=== PATIENT | female | born 1970 | race Caucasian/White ===

== ENCOUNTER → 2017-02-14 | Outpatient (CLI) | payer OTHER | END | disposition home or self-care (01) | LOC: C.LABSPEC 17:19 | PROVIDERS: ATTEND Podiatrist Primary Podiatric Medicine | DX: B35.1 Tinea unguium (principal) ==

== ENCOUNTER → 2017-12-05 | Outpatient (CLI) | payer OTHER ==
--- NOTE | 2017-12-05 17:20 | DIAGNOSTIC IMAGING REPORT ---
L RIBS UNILATERAL WITH PA CHEST CLINICAL HISTORY: R05 [id number] Rib pain on left [id number] COMPARISON STUDY: None FINDINGS: Negative left ribs. No evidence for fracture. Cortical margins are intact. The lungs are clear. IMPRESSION: Negative left ribs. Negative chest. The above report was generated using voice recognition software. It may contain grammatical, syntax or spelling errors. Electronically signed by: Caleb Brown M.D. 12/05/2017 5:19 PM Dictated Date/Time: 12/05/2017 5:18 PM
== END | disposition home or self-care (01) ==
LOC: C.RAD1850 16:42
PROVIDERS: ATTEND Nurse Practitioner
DX: R05 Cough (principal); R07.81 Pleurodynia

== ENCOUNTER → 2017-12-11 | Outpatient (CLI) | payer OTHER ==
[2017-12-11 12:55] LABS: BASO % 0.1 %; BASO ABS # 0.02 K/uL (0-0.2); EOS % 0.5 %; EOS ABS # 0.08 K/uL (0-0.5); HEMATOCRIT 41.5 % (37-47); HEMOGLOBIN 13.6 g/dL (12.0-16.0); IG# 0.13 K/uL (0.00-0.02); LYMPH % 24.4 %; LYMPH ABS # 3.91 K/uL (1.2-3.4); MEAN CORPUSCULAR HEMOGLOBIN 29.5 pg (25-34); MEAN CORPUSCULAR HGB CONC 32.8 g/dl (32-36); MONO ABS # 1.12 K/uL (0.11-0.59); NEUT % 67.2 %; NEUT ABS # 10.76 K/uL (1.4-6.5); PLATELET COUNT 399 K/uL (130-400); RED CELL DISTRIBUTION WIDTH CV 13.1 % (11.5-14.5); RED CELL DISTRIBUTION WIDTH SD 42.7 fL (36.4-46.3); WHITE BLOOD COUNT 16.02 K/uL (4.8-10.8)
[2017-12-11 13:11] LABS: FOLLICLE STIMULAT HORMONE 46.96 IU/L; LUTEINIZING HORMONE 32.76 IU/L
[2017-12-11 13:31] LABS: ALBUMIN 3.6 gm/dl (3.4-5.0); ALT/SGPT 40 U/L (12-78); BLOOD UREA NITROGEN 17 mg/dl (7-18); CALCIUM 9.2 mg/dl (8.5-10.1); CARBON DIOXIDE 27 mmol/L (21-32); CHOLESTEROL 167 mg/dl (0-200); CREATININE 0.71 mg/dl (0.60-1.20); GLUCOSE 95 mg/dl (70-99); POTASSIUM 4.2 mmol/L (3.5-5.1); SODIUM 139 mmol/L (136-145)
[2017-12-11 13:38] LABS: HEMOGLOBIN A1C 6.2 % (4.5-5.6)
[2017-12-11 13:41] LABS: ALKALINE PHOSPHATASE 58 U/L (45-117); AST/SGOT 23 U/L (15-37); LDL CHOLESTEROL CALCULATED 76 mg/dl; TOTAL PROTEIN 7.2 gm/dl (6.4-8.2)
== END | disposition home or self-care (01) ==
LOC: C.LABBFT 08:39
PROVIDERS: ATTEND Internal Medicine
DX: R73.01 Impaired fasting glucose (principal); R23.2 Flushing

== ENCOUNTER → 2017-12-12 | Outpatient (CLI) | payer OTHER ==
--- NOTE | 2017-12-12 07:55 | DIAGNOSTIC IMAGING REPORT ---
ABDOMEN COMPLETE (US) CLINICAL HISTORY: R10.11 Abdominal pain, RUQ (right upper quadrant)[id number] COMPARISON STUDY: No previous studies for comparison. FINDINGS: The examination was very limited from a technical standpoint due to the patient's body habitus. The gallbladder surgically absent. The liver was of increased echogenicity difficult to penetrate. Hepatic steatosis is suspected. The common bile duct was difficult to visualize but likely measured 7 mm. The spleen measures 1104 cm in length. Each kidney is 12 cm in length. There is no significant hydronephrosis. The aorta was nonvisualized. IMPRESSION: 1. Significantly limited study from a technical standpoint 2. Surgically absent gallbladder 3. Suspected hepatic steatosis Electronically signed by: Joon Gallo M.D. 12/12/2017 7:54 AM Dictated Date/Time: 12/12/2017 7:52 AM
== END | disposition home or self-care (01) ==
LOC: C.ULTR 06:56
PROVIDERS: ATTEND Internal Medicine
DX: R10.11 Right upper quadrant pain (principal); Z90.49 Acquired absence of other specified parts of digestive tract

== ENCOUNTER → 2017-12-16 | Outpatient (CLI) | payer OTHER ==
[~2017-12-16] MED LIST: OPTIRAY 320 IV PRN
--- NOTE | 2017-12-16 08:05 | DIAGNOSTIC IMAGING REPORT ---
CT OF THE ABDOMEN AND PELVIS WITH CONTRAST CLINICAL HISTORY: Right upper quadrant pain. Bilateral lower rib pain. Fatty liver. COMPARISON STUDY: Abdominal ultrasound December 12, 2017. TECHNIQUE: Following IV administration of 116 mL of Optiray-320, axial images of the abdomen and pelvis were obtained from the lung bases to the proximal femurs. Images were reviewed in the axial, sagittal, and coronal planes. IV contrast was administered without complication. A dose lowering technique was utilized adhering to the principles of ALARA. CT DOSE: 2251.52 mGy.cm FINDINGS: Visualized portions of the lower chest demonstrate a nondisplaced anterior left sixth rib fracture which has minimal callus formation. This is subacute to acute. There is fatty infiltration of the liver. There is no biliary ductal dilatation status post cholecystectomy. No pneumothorax is shown within visualized portions of the lower chest. Note is made of a 7 mm x 4 mm calculus within lower pole of the left kidney. There are no ureteral calculi. There is no hydronephrosis or hydroureter. There is no evidence for a bowel obstruction. The appendix is normal. There is no lymphadenopathy. No suspicious skeletal lesions are present. The ovaries are not enlarged. The uterus is surgically absent. Small fat-containing umbilical hernia is noted. IMPRESSION: 1. Healing nondisplaced anterior left sixth rib fracture which is subacute to acute. 2. Fatty liver. 3. Left-sided nephrolithiasis. Electronically signed by: Jerry Vail M.D. 12/16/2017 8:04 AM Dictated Date/Time: 12/16/2017 7:52 AM
== END | disposition home or self-care (01) ==
LOC: C.CTS 07:19
PROVIDERS: ATTEND Internal Medicine
DX: K76.0 Fatty (change of) liver, not elsewhere classified (principal); R07.81 Pleurodynia

== ENCOUNTER → 2018-01-13 | Outpatient (CLI) | payer OTHER ==
--- NOTE | 2018-01-14 13:05 | MAMMOGRAPHY REPORT ---
BILATERAL DIGITAL SCREENING MAMMOGRAM TOMOSYNTHESIS WITH CAD: 01/13/2018 CLINICAL HISTORY: Routine screening. TECHNIQUE: Breast tomosynthesis in addition to standard 2D mammography was performed. Current study was also evaluated with a Computer Aided Detection (CAD) system. COMPARISON: Comparison is made to exams dated: 03/15/2016 mammogram, 06/21/2010 ultrasound, and 0 mammogram - [facility]. BREAST COMPOSITION: There are scattered areas of fibroglandular density in both breasts. FINDINGS: The parenchymal pattern is unchanged. No developing mass, architectural distortion or clus ter of suspicious microcalcifications is seen in either breast. IMPRESSION: ACR BI-RADS CATEGORY 2: BENIGN There is no mammographic evidence of malignancy. A 1 year screening mammogram is recommended. The pa tient will receive written notification of the results. Approximately 10% of breast cancers are not detected with mammography. A negative mammographic report should not delay biopsy if a clinically suggestive mass is present. Cathie Diggs M.D. ay/:01/13/2018 17:16:56 Field Care Coordinator: Wei GALINDO(R)(M), [facility] letter sent: Normal 1/2 BI-RADS Code: ACR BI-RADS Category 2: Benign
== END | disposition home or self-care (01) ==
LOC: C.MAMM 13:46
PROVIDERS: ATTEND Obstetrics & Gynecology
DX: Z12.31 Encounter for screening mammogram for malignant neoplasm of breast (principal)